=== PATIENT | female | born 1950 | race American Indian/Alaskan Native ===

== ENCOUNTER 2017-06-28 09:02 | Outpatient (CLI) | payer MEDICARE ==
--- NOTE | 2017-07-02 18:36 | Magnetic Resonance Report ---
MR scan of the cranium was performed without contrast. Pulse sequences included: 1. T1 weighted sagittal and axial images without contrast 2. T2 weighted axial and coronal images 3. FLAIR axial images 4. Diffusion-weighted axial images 5. Apparent diffusion coefficient images 6. Axial gradient echo images Views of the posterior fossa showed a normal craniocervical junction. Cerebellar pontine angles were normal with normal seventh-eighth nerve complexes. Brainstem and cerebellum were normal. The ventricular system showed no dilatation or distortion. Images of the hemispheres showed occasional areas of increased signal consistent with araiosis. Flow voids in the [place], orbits, and basal ganglia were normal. Pituitary was flattened against the floor of the sella giving the appearance of an empty sella Increased signal was seen in the left mastoid consistent with mastoid sinusitis Impression: Mildly abnormal MR scan of the cranium without contrast a. mild white matter araiosis -- these changes could also be seen with migraine b. partially empty sella c. left mastoid sinusitis
== END 2017-06-28 09:03 | disposition home or self-care (01) ==
LOC: SPVIMAG 09:02
PROVIDERS: ATTEND Specialist
DX: J32.8 Other chronic sinusitis (principal); E23.6 Other disorders of pituitary gland; R51 Headache
CPT/HCPCS: 70551